=== PATIENT | female | born 1975 | race African-American/Black ===

== ENCOUNTER 2018-06-06 06:40 | Day surgery (SDC) | payer SELFPAY ==
[2018-06-06] MEDS ORDERED: SODIUM BICARBONATE 8.4% 50 MEQ/50 ML VIAL ONE (07:25)
[2018-06-06] MEDS ORDERED: LIDOCAINE HCL 2% (20ML MULTI-DOSE VIAL) NR ONE ×2 (07:26→08:30)
[2018-06-06] MEDS ORDERED: fentaNYL CITRATE 250 MCG/5 ML VIAL ONE (07:48)
[2018-06-06] MEDS ORDERED: ROCURONIUM BROMIDE 50 MG/5 ML VIAL ONE ×3 (07:48→12:15)
[2018-06-06] MEDS ORDERED: PROPOFOL 20 ML ONE ×4 (07:48→12:20)
[2018-06-06] MEDS ORDERED: MIDAZOLAM HCL 2 MG/2 ML SINGLE DOSE VIAL ONE (07:49)
[2018-06-06 08:13] VITALS: BMI 31.3
[2018-06-06] MEDS ORDERED: BACITRACIN 15 GM TUBE TOPICAL OINTMENT ONE (08:18)
[2018-06-06] MEDS ORDERED: ALBUTEROL SO4 8 GM HFA INHALER IH ONE (09:01)
[2018-06-06] MEDS ORDERED: ceFAZolin SODIUM 1 GM VIAL ONE (09:24)
[2018-06-06] MEDS ORDERED: ACETAMINOPHEN INJECTION 100 ML IVPB ONE (13:25)
[2018-06-06] MEDS ORDERED: NEOSTIGMINE METHYLSULFATE 0.5 MG/ML - 10 ML MDV ONE (13:30)
[2018-06-06] MEDS ORDERED: GUM MASTIC/STORAX/MSAL/ALCOHOL 1 DRP DROPSBTL MC ONE (13:38)
[2018-06-06] MEDS ORDERED: GLYCOPYRROLATE 0.2 MG/1 ML VIAL ONE (13:38)
[2018-06-06] MEDS ORDERED: ONDANSETRON 4 MG/2 ML VIAL ONE (13:49)
[2018-06-06] MEDS ORDERED: PROMETHAZINE HCL 25 MG/1 ML VIAL IVPB PRN (14:27)
[2018-06-06] MEDS ORDERED: ONDANSETRON 4 MG/2 ML VIAL IVPUSH PRN (14:27)
[2018-06-06] MEDS ORDERED: oxyCODONE HCL 5 MG TABLET PO PRN (14:27)
[2018-06-06] MEDS ORDERED: LACTATED RINGERS SOLUTION 1,000 ML IV SCH (14:30)
[2018-06-06] MEDS ORDERED: oxyCODONE HCL 5 MG TABLET ONE (16:17)
[2018-06-06 19:12] VITALS: BP 118/60; PULSE 95; TEMP 97.9
--- NOTE | 2018-06-13 14:25 | PATH ---
Surgical Pathology Report Patient Name: JESSE QUINTERO Med. Rec. #: [id number] /Age/Gender: 1975 (Age: 42) / F Account: [id number] Location: [facility] Taken: 06/06/2018 Received: 06/06/2018 Reported: 06/11/2018 Physicians: Chel Sears M.D. Specimen(s) Received ABDOMINAL FAT AND SKIN Clinical History Cosmetic Final Diagnosis ABDOMINAL SKIN AND FAT, LIPOSUCTION AND ABDOMINOPLASTY: UNREMARKABLE FIBROADIPOSE TISSUE AND SKIN. MACROSCOPIC DIAGNOSIS. Electronically Signed Leighann Posada M.D. Gross Description Received in formalin labeled "abdominal skin and fat, " is a 1949 g, 43.0 x 17.5 x 4.8 cm unoriented portion of brown, unremarkable skin with underlying soft tissue. Sectioning of the underlying soft tissue reveals yellow, lobulated adipose tissue. No lesions are identified. No sections are submitted, gross only. /06/10/2018 [facility]06/10/2018
== END 2018-06-06 19:12 | disposition home or self-care (01) ==
LOC: FASU 06:40
PROVIDERS: ATTEND Plastic Surgery
PROC: 0J080ZZ Alteration of Abdomen Subcutaneous Tissue and Fascia, Open Approach (ICD-10-PCS; principal; 2018-06-06 09:47)
PROC: 0J073ZZ Alteration of Back Subcutaneous Tissue and Fascia, Percutaneous Approach (ICD-10-PCS; 2018-06-06 09:47)
DX: Z41.1 Encounter for cosmetic surgery (principal)
CPT/HCPCS: 84703; 88300-TC; 94760; J0131